=== PATIENT | female | born 1950 | race Caucasian/White ===

== ENCOUNTER 2019-01-12 08:36 | Outpatient (RCR) | payer MEDICARE, MEDICAID | END 2019-01-28 14:55 | LOC: OPPGERO 08:36 | DX: F33.3 Major depressive disorder, recurrent, severe with psychotic symptoms (principal); F41.1 Generalized anxiety disorder; G31.84 Mild cognitive impairment of uncertain or unknown etiology; E78.00 Pure hypercholesterolemia, unspecified; G30.0 Alzheimer's disease with early onset; Z79.899 Other long term (current) drug therapy ==